=== PATIENT | female | born 1995 | race Caucasian/White ===

== ENCOUNTER 2021-07-09 10:13 | Observation (INO) ==
[2021-07-09] MEDS ORDERED: LACTATED RINGER'S 1,000 ML IV ONE (14:00)
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
== END 2021-07-09 19:48 | disposition home or self-care (01) ==
LOC: 4S1 10:13 → OPB 10:13 → 4S1 10:15

== ENCOUNTER 2021-07-10 11:20 | Inpatient (IN) ==
[2021-07-10] MEDS ORDERED: OXYTOCIN 30 UNITS/500 ML BAG IV PRN ×3 (12:20→19:25)
[2021-07-10 12:45] LABS: Hematocrit (blood only) 37.8 % (37-47); Mean Corpuscular Hemoglobin 26.1 pg (25-34); Mean Corpuscular Hgb Conc 31.7 g/dL (32-36); Mean Corpuscular Volume 82.4 fL (80-100); Mean Platelet Volume 11.7 fL (7.4-10.4); Platelet Count 174 K/uL (130-400); RDW Coefficient of Variation 20.6 % (11.5-14.5); RDW Standard Deviation 61.4 fL (36.4-46.3); Red Blood Count 4.59 M/uL (4.2-5.4); White Blood Count 11.46 K/uL (4.8-10.8)
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
--- NOTE | 2021-07-10 13:00 | Labor Progress Brief Note ---
Date of Service July 10, 2021 Assessment & Plan Admission and Anticipated Discharge Date Admission Date: July 10, 2021 Physical Exam Genitourinary: no vaginal lesions, no adnexal mass normal external appearance OB Exam Abdomen: + fundal height and + vertex Manual OB Exam: + cervical dilation 4 cm and 5 cm, + cervical effacement 50% and + station -2 OB Exam Monitor Tracing: + external FHT monitor used, + external uterine monitor used, + category I and + normal FHT variability Results & Data ([facility]) Vital Signs (Past 12 Hours) Vital Signs Temp Resp 07/10/21 12:19 37 C 18
[2021-07-10] MEDS ORDERED: ePHEDrine sulfate 50 MG/ML AMP ONE (13:09)
[2021-07-10] MEDS ORDERED: BUPIVACAINE 0.25% 30 ML VIAL ONE (13:09)
[2021-07-10] MEDS ORDERED: fentaNYL citrate 100 MCG/2 ML VIAL ONE (13:10)
[2021-07-10] MEDS ORDERED: fentaNYL 2MCG/ML ROPIVACAINE 1.25MG/ML 100 ML BAG EPI ONE (13:12)
[2021-07-10] MEDS: LACTATED RINGER'S 1,000 ML IV PRN ×2 (13:29→15:17)
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
[2021-07-10] MEDS ORDERED: fentaNYL 2MCG/ML ROPIVACAINE 1.25MG/ML 100 ML BAG EPI PRN (15:00)
[2021-07-10] MEDS ORDERED: ONDANSETRON INJ 2 MG/ML 2 ML VIAL IV PRN (15:00)
[2021-07-10] MEDS ORDERED: NALBUPHINE HCL INJ 10 MG/ML AMP IV PRN (15:00)
[2021-07-10] MEDS ORDERED: ePHEDrine sulfate 50 MG/ML AMP IV PRN (15:00)
[2021-07-10] MEDS ORDERED: NALOXONE HCL 0.4 MG/1 ML VIAL/CARP IV PRN (15:00)
[2021-07-10] MEDS ORDERED: NALOXONE HCL 1 MG in SODIUM CHLORIDE 0.9% 1000ML 1,000 ML IV PRN (15:00)
[2021-07-10] MEDS ORDERED: diphenhydrAMINE 50 MG/ML VIAL IV PRN (15:00)
[2021-07-10] MEDS: SODIUM CHLORIDE 0.9% INJ 10 ML VIAL ONE ×2 (15:31→15:38)
--- NOTE | 2021-07-10 17:11 | Labor Progress Brief Note ---
Date of Service July 10, 2021 Assessment & Plan Admission and Anticipated Discharge Date Admission Date: July 10, 2021 Physical Exam Genitourinary: Manual OB Exam: + cervical dilation 8 cm, + cervical effacement 100%, + station 0 and + amniotic fluid clear OB Exam Monitor Tracing: + external FHT monitor used, + external uterine monitor used, + category I and + normal FHT variability AROM with Amni-hook clear fluid Results & Data ([facility]) Vital Signs (Past 12 Hours) Vital Signs Temp Pulse Resp BP Pulse Ox 07/10/21 17:08 97 H 100 07/10/21 17:03 110 H 100 07/10/21 16:58 76 99 07/10/21 16:56 86 112/57 L 07/10/21 16:53 90 100 07/10/21 16:48 92 H 100 07/10/21 16:43 84 98 07/10/21 16:41 82 105/54 L 07/10/21 16:38 85 99 07/10/21 16:33 72 98 07/10/21 16:28 77 98 07/10/21 16:26 80 100/55 L 07/10/21 16:23 84 99 07/10/21 16:18 80 99 07/10/21 16:13 80 98 07/10/21 16:11 78 91/51 L 07/10/21 16:10 18 07/10/21 16:08 78 97 07/10/21 16:03 82 98 07/10/21 15:58 84 99 07/10/21 15:55 82 99/57 L 07/10/21 15:53 83 100 07/10/21 15:52 85 91/54 L 07/10/21 15:49 85 91/48 L 07/10/21 15:48 85 100 07/10/21 15:46 83 97/55 L 07/10/21 15:43 79 106/56 L 98 07/10/21 15:42 78 102/56 L 07/10/21 15:40 81 93/51 L 07/10/21 15:38 79 98 07/10/21 15:37 71 97/53 L 07/10/21 15:34 80 119/65 07/10/21 15:33 75 97 07/10/21 15:31 72 108/58 L 07/10/21 15:28 78 114/62 98 07/10/21 15:25 75 116/65 07/10/21 15:23 75 100 07/10/21 15:22 77 112/59 L 07/10/21 15:19 67 124/74 07/10/21 15:18 66 100 07/10/21 15:13 72 100 07/10/21 15:09 65 119/64 07/10/21 15:08 70 98 07/10/21 14:56 18 07/10/21 13:40 18 07/10/21 12:19 37 C 18 07/10/21 11:40 18
[2021-07-10] MEDS ORDERED: BENZOCAINE 20% AER SPR 82.5 GM CAN EXT PRN (19:25)
[2021-07-10] MEDS ORDERED: HYDROCORTISONE ACETATE 25 MG SUPP PR PRN (19:25)
[2021-07-10] MEDS ORDERED: DIPHTHERIA/TETANUS/PERTUSSIS 0.5 ML SYR/VIAL IM ONE (19:25)
[2021-07-10] MEDS ORDERED: bisacodyL 10 MG SUPP PR PRN (19:25)
[2021-07-10] MEDS ORDERED: SUPERCREAM 0.870% 15 GM JAR EXT PRN (19:25)
--- NOTE | 2021-07-10 19:29 | Delivery Summary ---
Vaginal Delivery Summary Date of Service July 10, 2021 Vaginal Delivery Summary Delivery Note live male MARK over intact perineum with delayed cord clamping and Apgars 8/9 weight pending. Cord blood obtained followed by spontaneous delivery of intact placenta. No tears. EBL 200 ml. Final sponge and instrument count are correct. Mom and baby stable.
[2021-07-10] MEDS ORDERED: NON-FORMULARY MEDICATION (Ferrous Sulfate [Iron] 325 mg (65 mg iron) Tablet) PO SCH (21:00)
--- NOTE | 2021-07-10 21:39 | Anesthesia Procedure Note ---
Date of Service July 10, 2021 Anesthesia Post Epidural Note Vital Signs Vital Signs: Temp Pulse Resp BP Pulse Ox 36.7 C 82 18 100/58 L 98 07/10/21 19:00 07/10/21 21:36 07/10/21 19:00 07/10/21 21:36 07/10/21 19:18 Pain Intensity Abdomen: Pain Intensity: 0 Notes Mental Status: alert / awake / arousable and participated in evaluation Nausea / Vomiting: adequately controlled Pain: adequately controlled Airway Patency, RR, SpO2: stable & adequate BP & HR: stable & adequate Hydration State: stable & adequate Neuraxial Anesthesia: was administered and sensory block is resolving Anesthetic Complications: no major complications apparent and Pt Satisfied with anesthetic care Epidural: Removed without complications and With tip intact Notes: Epidural site clean, dry and intact. No signs of edema, erythema or bruising at insertion site. Pt instructed to request anesthesia if she has residual lower extremity numbness or if she develops lower extremity pain or weakness, back pain or headache.
[2021-07-10] MEDS: IBUPROFEN 600 MG TAB PO PRN (21:51)
[2021-07-10] MEDS: DOCUSATE SODIUM 100 MG CAP PO SCH (21:51)
[2021-07-11] MEDS: IBUPROFEN 600 MG TAB PO PRN ×5 (03:32→20:48)
[2021-07-11 07:47] LABS: Hematocrit (blood only) 31.2 % (37-47); Hemoglobin 9.8 g/dL (12.0-16.0); Mean Corpuscular Hemoglobin 25.8 pg (25-34); Mean Corpuscular Hgb Conc 31.4 g/dL (32-36); Mean Corpuscular Volume 82.1 fL (80-100); Mean Platelet Volume 12.1 fL (7.4-10.4); Platelet Count 162 K/uL (130-400); RDW Coefficient of Variation 20.4 % (11.5-14.5); RDW Standard Deviation 60.7 fL (36.4-46.3); White Blood Count 9.95 K/uL (4.8-10.8)
[2021-07-11] MEDS: PRENATAL VITAMIN 1 TAB PO SCH (07:50)
[2021-07-11] MEDS: DOCUSATE SODIUM 100 MG CAP PO SCH ×2 (07:50→20:43)
[2021-07-11] MEDS ORDERED: FERROUS SULFATE 325 MG TAB PO SCH (08:00)
[2021-07-11] MEDS ORDERED: NON-FORMULARY MEDICATION (Prenat.Vits,Cal,Min-Iron-Folic Tablet) PO SCH (09:00)
[2021-07-11] MEDS ORDERED: METHYLERGONOVINE MALEATE 0.2 MG TAB PO STA (09:36)
--- NOTE | 2021-07-11 09:39 | Obstetrical Progress Note ---
Date of Service July 11, 2021 Assessment & Plan Admission and Anticipated Discharge Date Admission Date: July 10, 2021 Subjective Patient is seen and examined. She feels well, no complaints. Ambulating without dizziness Voiding without difficulty Tolerating regular diet with out N&V Bleeding: she passed a small cloth 10 minutes ago. Otherwise not heavy No fever/ chills/ CP/ SOB/ N&V/ Leg pain Breast feeding without problems Vital Signs Temp Pulse Resp BP Pulse Ox 07/11/21 03:30 36.6 C 66 16 119/75 96 07/10/21 22:30 36.7 C 77 18 111/68 97 Lab Results 07/10/21 07/10/21 07/11/21 Range/Units 12:31 12:50 06:57 WBC 11.46 H 9.95 (4.8-10.8) K/uL RBC 4.59 3.80 L (4.2-5.4) M/uL Hgb 12.0 9.8 L (12.0-16.0) g/dL Hct 37.8 31.2 L (37-47) % MCV 82.4 82.1 (80-100) fL MCH 26.1 25.8 (25-34) pg MCHC 31.7 L 31.4 L (32-36) g/dL RDW Std Deviation 61.4 H 60.7 H (36.4-46.3) fL RDW Coeff of Bernardino 20.6 H 20.4 H (11.5-14.5) % Plt Count 174 162 (130-400) K/uL MPV 11.7 H 12.1 H (7.4-10.4) fL SARS-CoV-2, RNA, NAAT NEGATIVE (NEGATIVE) PE: General: Alert, orientedx3, NAD Abd: soft, NT, fundus firm, below Umbilicus Perineum intact, Lochia rubra minimal Ext; NT, no edema AP: 25 yo s/p , ppd# 1 VSS Afebrile doing well Continue routine care Start po methergine All questions were answered D/C home tomorrow Results & Data ([facility]) Vital Signs (Past 12 Hours) Vital Signs Temp Pulse Resp BP Pulse Ox 07/11/21 03:30 36.6 C 66 16 119/75 96 12/31/21 22:30 36.7 C 77 18 111/68 97
[2021-07-11] MEDS: ACETAMINOPHEN 325 MG TAB PO PRN ×2 (10:25→19:37)
[2021-07-11] MEDS: METHYLERGONOVINE MALEATE 0.2 MG TAB PO SCH ×3 (12:49→20:44)
[2021-07-11] MEDS ORDERED: bisacodyL 5 MG TABEC PO SCH (20:00)
[2021-07-11] MEDS: FERROUS SULFATE 325 MG TAB PO SCH (20:43)
[2021-07-12] MEDS: IBUPROFEN 600 MG TAB PO PRN ×2 (01:23→05:17)
[2021-07-12 06:24] LABS: Hematocrit (blood only) 31.6 % (37-47); Hemoglobin 10.2 g/dL (12.0-16.0)
[2021-07-12] MEDS: PRENATAL VITAMIN 1 TAB PO SCH (08:20)
[2021-07-12] MEDS: FERROUS SULFATE 325 MG TAB PO SCH (08:21)
[2021-07-12] MEDS: DOCUSATE SODIUM 100 MG CAP PO SCH (08:21)
--- NOTE | 2021-07-12 08:41 | Obstetrical Progress Note ---
Date of Service July 12, 2021 Assessment & Plan Admission and Anticipated Discharge Date Admission Date: July 10, 2021 Subjective Patient is seen and examined. She feels well, no complaints. Ambulating without dizziness Voiding without difficulty Tolerating regular diet with out N&V Bleeding is minimal No fever/ chills/ CP/ SOB/ N&V/ Leg pain Breast feeding without problems Vital Signs Temp Pulse Resp BP Pulse Ox 07/11/21 23:20 36.7 C 57 L 16 111/71 98 07/11/21 16:00 36.7 C 60 18 116/75 07/11/21 12:45 36.6 C 68 18 114/61 97 07/11/21 08:45 36.7 C 61 18 115/73 98 Lab Results 07/10/21 07/10/21 07/11/21 Range/Units 12:31 12:50 06:57 WBC 11.46 H 9.95 (4.8-10.8) K/uL RBC 4.59 3.80 L (4.2-5.4) M/uL Hgb 12.0 9.8 L (12.0-16.0) g/dL Hct 37.8 31.2 L (37-47) % MCV 82.4 82.1 (80-100) fL MCH 26.1 25.8 (25-34) pg MCHC 31.7 L 31.4 L (32-36) g/dL RDW Std Deviation 61.4 H 60.7 H (36.4-46.3) fL RDW Coeff of Bernardino 20.6 H 20.4 H (11.5-14.5) % Plt Count 174 162 (130-400) K/uL MPV 11.7 H 12.1 H (7.4-10.4) fL SARS-CoV-2, RNA, NAAT NEGATIVE (NEGATIVE) 07/12/21 Range/Units 06:02 WBC (4.8-10.8) K/uL RBC (4.2-5.4) M/uL Hgb 10.2 L (12.0-16.0) g/dL Hct 31.6 L (37-47) % MCV (80-100) fL MCH (25-34) pg MCHC (32-36) g/dL RDW Std Deviation (36.4-46.3) fL RDW Coeff of Bernardino (11.5-14.5) % Plt Count (130-400) K/uL MPV (7.4-10.4) fL SARS-CoV-2, RNA, NAAT (NEGATIVE) PE: General: Alert, orientedx3, NAD Abd: soft, NT, fundus firm, below Umbilicus Perineum intact, Lochia rubra minimal Ext; NT, no edema AP: 25 yo s/p , ppd# 2 VSS Afebrile doing well Continue routine care All questions were answered Discussed when to call D/C home , f/u in office Results & Data ([facility]) Vital Signs (Past 12 Hours) Vital Signs Temp Pulse Resp BP Pulse Ox 07/11/21 23:20 36.7 C 57 L 16 111/71 98
== END 2021-07-12 10:15 | disposition home or self-care (01) | DRG 807 ==
LOC: OPB 11:20 → 4S1 11:23 → 4S2 21:55

== ENCOUNTER 2023-07-29 05:29 | Inpatient (IN) ==
--- NOTE | 2023-07-27 13:12 | Anesthesiology Consultation ---
Date of Service July 27, 2023 Assessment & Plan (1) Encounter for pre-operative examination: Chart Review Chart Review: charge entry initiated -Infectious Disease screening: Per PAT nursing assessment on 07/27/23. Patient with chronic allergy symptoms x weeks- mild nasal congestion. No other symptoms- mildly improved from previous. No known infectious disease contacts in past 10 days. No recent travel outside the country. No additional testing needed from anesthesia standpoint in regards to Covid. Labor Epidural 07/10/21= Epidural at L3 with 1 attempt. Easy, atraumatic placement on first attempt. History Surgery Operation Date: 07/29/23 07:30 Proposed Procedures p Primary Section - Peggy Bhatt MD s with Bilateral Tubal Ligation - Peggy Bhatt MD Height/Weight Height: 5 ft 2 in Weight: 86.183 kg Allergies Allergy/AdvReac Type Severity Reaction Status Date / Time adalimumab [From Humira] Allergy Unknown Rash Verified 07/27/23 12:21 Sulfa (Sulfonamide Allergy Unknown "HUGE RASH" Verified 07/27/23 12:21 Antibiotics) sulfasalazine Allergy Unknown Rash Verified 07/27/23 12:21 Medications Home Medications Medication Instructions Recorded Confirmed Last Taken ferrous sulfate 325 mg (65 mg 325 mg PO BID 06/01/19 07/27/23 07/09/21 08:00 iron) tablet (iron) prenat.vits,meggan,[id number]-[id number] 1 tab PO QAM 07/09/21 07/27/23 07/09/21 08:00 aspirin 81 mg tablet,delayed 81 mg PO QAM 07/27/23 07/27/23 Unknown release metformin 500 mg tablet 500 mg PO BID 07/27/23 07/27/23 Unknown Past Medical History Medical History Breech presentation High blood pressure hx prior /baby aspirin recommended by maternal / medicine. High cholesterol Pre-diabetes Rheumatoid arthritis Past Family History Family History Other No pertinent family history in first degree relatives Past Surgical History Surgical History History of mitral valve repair 2007 or 2008. Social History Smoking Status: Never smoker Do You Dip or Chew Tobacco: No Hx Substance Use: No substance use type: does not use Testing Laboratory Results 05/31/23= WBC: 9.26 H/H: 11.2/37.7 PLATELETS: 192 Electrocardiogram Date: 09/21/22 Findings: + NSR @ (79 bpm) Incomplete right bundle branch block Echocardiogram Date: 06/01/22 EF: 59% LV Function: normal RWMA: + none Other Findings: no LVH or no diastolic dysfunction Evidence of prior mitral valve repair. Borderline anterior mitral valve prolapse. Mitral stenosis is absent. Mild MR. Stress Test Date: 11/24/22 Type: exercise (ECHO) Stress echo and EKG negative for inducible ischemia. MPHR 86% No arrhythmias were noted with stress Patient describes 8/10 intensity chest discomfort at peak heart rate that resolv ed on the post-rest recovery interval with no associated EKG or echocardiographic abnormalities LV wall thickness is normal. LVEF 55-59%. Evidence of prior mitral valve repair. Borderline anterior mitral leaflet prolapse. Mitral stenosis is absent. Trace MR. No evidence of pulmonary hypertension.
[2023-07-29] MEDS ORDERED: ceFAZolin 2000MG 2,000 MG/15 ML SYR IV SCH (06:00)
[2023-07-29] MEDS ORDERED: CITRIC ACID/SODIUM CITRATE 15 ML UDC PO SCH (06:00)
[2023-07-29 06:20] LABS: Basophils # (auto) 0.02 K/uL (0.00-0.20); Basophils % (auto) 0.3 %; Eosinophils # (auto) 0.05 K/uL (0.00-0.50); Eosinophils % (auto) 0.6 %; Hematocrit (blood only) 30.5 % (37.0-47.0); Hemoglobin 10.1 g/dl (12.0-16.0); Immature Granulocytes % (auto) 1.3 %; Lymphocytes % (auto) 19.2 %; Mean Corpuscular Hemoglobin 26.2 pg (25.0-34.0); Mean Corpuscular Hgb Conc 33.1 g/dL (32.0-36.0); Monocytes # (auto) 0.74 K/uL (0.11-0.59); Monocytes % (auto) 9.5 %; Neutrophils # (auto) 5.41 K/uL (1.40-6.50); Neutrophils % (auto) 69.1 %; Platelet Count 168 K/uL (130-400); RDW Coefficient of Variation 15.8 % (11.5-14.5); RDW Standard Deviation 44.9 fL (36.4-46.3); Red Blood Count 3.86 M/uL (4.20-5.40); White Blood Count 7.82 K/ul (4.8-10.8)
[2023-07-29] MEDS ORDERED: LACTATED RINGER'S 1,000 ML IV SCH ×2 (06:30→09:00)
--- NOTE | 2023-07-29 07:19 | History & Physical Bridge Note ---
Date of Service July 29, 2023 History & Physical Bridge Note I have examined the patient, reviewed the History & Physical and in the interval since the performance of the History & Physical I have noted the following changes of clinical significance: no changes noted Desires permanent sterilization. Declined reversible options, states she is %100 sure about this decision. Signed an informed consent.
[2023-07-29] MEDS ORDERED: MoRPHine SULFATE PF 1 MG/ML 10 ML AMP/VIAL ONE (07:29)
--- OUTSIDE RECORDS SUMMARY | 2023-07-29 07:29 | External Medical Summary | Summary of Care ---
Author Name Unknown Organization [facility] Address [address] [place] [address] Phone [phone] Care Team Providers Care Reservations Sales Agent Name Role Phone Marilu Quiros MD Primary Care Provider [phone] Reason for Visit * Reason Comments Return Visit Pre-Op Testing Encounter Details Date Type Department Care Team (Late st Contact Info) Description 07/25/2023 9:45 AM EST Office Visit Gynecology/Obstetric s [facility] [address] [place] [address] Humza Aleman MD [address] [place] [address] S/P mitral valve repair*; Antepartum anemia complicating ; Supervision of high-risk , unspecified trimester; Obesity in , antepartum; Maternal congenital cardiac anomaly, antepartum; Maternal rheumatoid arthritis complicating (HCC); History of macrosomia in infant in prior , currently ; History of gestational hypertension; Rubella non-immune status, antepartum; Depression complicating , antepartum; Low maternal serum vitamin B12 Allergies Active Allergy Reactions Criticality Noted Date Comments Adalimumab Rash Medium 09/21/2022 Sulfasalazine Rash Medium 07/24/2010 documented as of this encounter (statuses as of 07/25/2023) Medications Medication Sig Dispensed Refills Start Date End Date Status metFORMIN HCl 500 MG Oral Tablet (Glucophage) Take 1 Tablet by mouth 2 times a day with morning and evening meals. 180 Tablet 1 09/03/2022 Active Azelastine HCl 0.1 % Nasal Solution (Astelin) Administer 2 Sprays into nostril in the morning and 2 Sprays before bedtime. 90 mL 3 11/02/2022 Active Budesonide 32 MCG/ACT Nasal Suspension Administer 2 Sprays into each nostril in the morning. 15 mL 5 11/26/2022 Active 19 29-1 MG Oral Tablet Chewable Take by mouth. 0 Active Aspirin 81 MG Oral Tablet Chewable Take 1 Tablet by mouth in the morning. 0 Active Sertraline HCl 50 MG Oral Tablet (Zoloft)Indications :Depression complicating , antepartum Take 1 Tablet by mouth in the morning. 90 Tablet 2 03/30/2023 Active Additional Information Patient not taking.Reported on 07/25/2023 Ferrous Sulfate 325 (65 Fe) MG Oral Tablet (Feosol)Indications :Antepartum anemia complicating Take 1 Tablet by mouth in the morning and 1 Tablet before bedtime. 60 Tablet 3 05/03/2023 Active Breast Pump Dispense double electric breast pump. Dx Z39.1 1 Each 0 05/18/2023 Active Vitamin B-12 1000 MCG Oral Tablet (Cyanocobalamin)Ind ications:Antepartum anemia complicating Take 1 Tablet by mouth in the morning. 30 Tablet 2 06/07/2023 Active Azithromycin 250 MG Oral Tablet (Zithromax Z-Abiodun)Indications:A cute maxillary sinusitis, recurrence not specified Take two tablets by mouth on first day, then 1 tablet daily until gone 6 Tablet 0 07/05/2023 Active documented as of this encounter (statuses as of 07/25/2023) Active Problems Problem Noted Date Diagnosed Date Low maternal serum vitamin B12 05/03/2023 Depression complicating , antepartum Overview: Zoloft Rubella non-immune status, antepartum 12/29/2022 Supervision of high-risk , unspecified trimester 12/28/2022 Obesity in , antepartum 12/28/2022 Overview: Pre-gravid BMI 34.01 (#186, 5'2") Early 1 hour GCT elevated. 3 hour GTT normal. Typically takes Metformin 500 mg BID for prediabetes. Patient held Metformin for one week prior to gestational diabetes screening; plans to resume taking it now. Hemoglobin AIC Results: Lab Results Component Value Date/Time HEMOGLOBIN A1C - RADHA 5.6 05/12/2022 07:52 AM Last Assessment & Plan: Low risk NIPT appreciated as well as early 1'GTT and 3'GTT results. Maternal congenital cardiac anomaly, antepartum 12/28/2022 Overview: Mitral valve prolapse Last Assessment & Plan: Mitral valve regurgitation with repair. Maternal rheumatoid arthritis complicating pregn arabella 12/28/2022 Overview: Follows with [facility] Rheumatology. Stopped medication due to . Currently reports persistent joint pain. Per progress note from Dr. Davis on 12/23: "1. Continue off all DMARD treatment given 2. will start Orencia after delivery 3. contact with any issues 4. return to clinic in 6 months" Last Assessment & Plan: RHEUMATOID ARTHRITIS 1. Rheumatoid arthritis is the most common autoimmune disease in women of childbearing age. The prevalence is approximately 1 in 2000 pregnancies with a peak incidence at 35 to 40 years of age. 2. related changes in circulating hormones may contribute to a shift to a less inflammatory state during . Approximately 70-80% of women note an improvement in their RA during , and this usually is evident as early as the first trimester. However, approximately 90% of patients will experience a flare, usually within the first three months. 3. NSAID's for symptom management are associated with oligohydramnios and premature ductus arteriosus closure and should be avoided. 4. Glucocorticoid therapy is felt to be safe in if the benefits outweigh the risks of growth restriction at high doses, need for stress-dose steroids at delivery or for medical illness if chronic use antepartum, and increased risk for premature rupture of membranes and delivery. 5. Generally, the lowest possible dose of prednisone for disease control is recommended for patients whose RA becomes active during . 6. Methotrexate, leflunamide, minocycline, gold salts, and penicillinamine are contraindicated in . 7. Hydroxychloroquine is generally thought to be safe. There is a risk for rare ocular side-effects in the fetus. 8. RA itself does not appear to have any negative effects on . There is no documented association between increased loss, IUGR, or other complications and uncomplicted RA. Therefore, increased surveillance secondary to maternal RA is not necessary. History of macrosomia in inf ant in prior , currently 12/28/2022 Overview: 2nd baby: 4.281 kg Consider growth scan 36-37 weeks Last Assessment & Plan: CONSIDERATIONS: Explained that macrosomia is defined as a weight of greater than 4000 grams. A woman who previously has given to an infant weighing more than 4,000 g is 5-10 times more likely to deliver an infant weighing more than 4,500 g than a woman without such a history. Discussed that a variety of factors predispose a to macrosomia, including preexisting maternal diabetes, uncontrolled gestational diabetes, maternal prepregnancy obesity, excessive gestational weight gain, maternal interpregnancy weight gain, a prior macrosomic , postterm , and maternal nonsmoking status. An accurate diagnosis of macrosomia can be made only by weighing the after delivery. The diagnosis of macrosomia is imprecise. Methods used to predict weight include assessment of maternal risk factors, clinical examination, and ultrasound measurement of the fetus. For suspected macrosomia, the accuracy of estimated weight using ultrasound biometry is no better than that obtained with clinical palpation. RECOMMENDATION: Recommend performing gestational diabetes mellitus screen at time of first visit and repeat again at 26-28 weeks if early screen is normal. Monitor maternal weight gain throughout . Recommended weight gain during is 11-20 pounds for women with pre- BMI of 34. Consider referral for a nutrition consult. Consider growth scan at 36-37 weeks if LGA suspected. History of gestational hypertension 12/28/2022 Overview: History of elevated blood pressures towards the end of 2017 . Recommend bASA 81 mg daily beginning at 12-13 weeks due to multiple moderate preeclampsia risk factors (history of gestational hypertension, autoimmune disease). Last Assessment & Plan: CONSIDERATIONS: Explained to patient that in a woman who has always had normal blood pressures, gestational hypertension (GHTN) is defined as persistent elevations in her BP after 20 weeks gestation. Elevated BP is defined as greater than or equal to 140mmHg systolic or greater than 90mmHg diastolic on two separate occasions at least 4 hours apart after 20 weeks gestation. Explained to patient that women with hypertension during are at significantly increased risk for placental abruption, pre-eclampsia/eclampsia, delivery, gestational diabetes, growth restriction, stillbirth, delivery, hemorrhage, and maternal morbidity. These risks are related to the severity of the hypertension RECOMMENDATIONS: Recommend patient be followed clinically. Also recommend labwork with AST/ALT and platelets, and urine protein screen. If diagnosed with gestational hypertension recommend Maternal Medicine ultrasound for growth within 1 week of GHTN diagnosis and then every 4 weeks thereafter. Reviewed that GHTN, pre-eclampsia and HELLP are not preventable conditions. There is some evidence that daily ASA 81mg may decrease the risk for recurrence in patients with additional risk factors we recommend that proceed with starting this therapy at 13 weeks. 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 We reviewed the increased risk for congenital cardiac defect is higher when there is an affected first degree relative of the fetus (parent or sibling). echo may not detect small VSD (<2mm) but is effective in diagnosis of most cyanotic lesions and many other clinically relevant cardiac defects. Today's exam did not suggest any evidence of cardiac abnormality. Encounter for therapeutic drug monitoring 2002 S/P mitral valve repair 04/03/2003 Overview: Last saw cardiology in September 2022. EKG that visit showed sinus rhythm, incomplete RBBB, unchanged from prior. +dyslipidemia, not on medications due to planning . Stress echo was completed 11/2022 d/t concern of chest pain - per Dr Castillo's note, "Echocardiogram was performed for evaluation of chest discomfort. She did have reproduction of chest discomfort with exercising on the treadmill, with no EKG changes to suggest ischemia, and normal echocardiographic response with no stress-induced wall motion abnormalities, an appropriate increase in left ventricular systolic function, and the valve structure and function and look normal with a normally functioning mitral valve repair." Cardiology aware of ; follow-up planned for later this summer. Last Assessment & Plan: 1. Recommend continued close follow-up with Cardiology throughout this . 2. Patient aware to report worsening palpitations, chest pain, or SOB to Cardiology and OB. Estimated Date of Delivery Comme nts Yes 08/04/2023 Based on Ultraso und documented as of this encounter (statuses as of 07/25/2023) Resolved Problems Problem Noted Date Diagnosed Date Resolved Date Cerebral ventriculomegaly of fetus affecting care of mother 05/31/2023 06/17/2023 Last Assessment & Plan: Not appreciated in prior or current MFM scan. Unable to view radiology images to confirm finding. Class 1 obesity 01/04/2023 05/31/2023 Class 2 obesity without seri ous comorbidity with body mass index (BMI) of 35.0 to 35.9 in adult 03/17/2021 05/31/2023 Maternal rheumatoid arthriti s complicating 03/17/2021 05/06/2022 Overview: Diagnosed at age 15. Patient discontinued sulfasalizine (discontinued to allergy) and methotrexate in the past. She is currently prescribed Cimzia however not currently taking 03/17/21. Reports her last flare was a few months ago. Last Assessment & Plan: 1. Rheumatoid arthritis is the most common autoimmune disease in women of childbearing age. The prevalence is approximately 1 in 2000 pregnancies with a peak incidence at 35 to 40 years of age. 2. related changes in circulating hormones may contribute to a shift to a less inflammatory state during . Approximately 70-80% of women note an improvement in their RA during , and this usually is evident as early as the first trimester. However, approximately 90% of patients will experience a flare, usually within the first three months. 3. NSAID's for symptom management are associated with oligohydramnios and premature ductus arteriosus closure and should be avoided. 4. Glucocorticoid therapy is felt to be safe in if the benefits outweigh the risks of growth restriction at high doses, need for stress-dose steroids at delivery or for medical illness if chronic use antepartum, and increased risk for premature rupture of membranes and delivery. 5. Generally, the lowest possible dose of prednisone for disease control is recommended for patients whose RA becomes active during . 6. Methotrexate, leflunamide, minocycline, gold salts, and penicillinamine are contraindicated in . 7. Hydroxychloroquine is generally thought to be safe. There is a risk for rare ocular side-effects in the fetus. 8. RA itself does not appear to have any negative effects on . There is no documented association between increased loss, IUGR, or other complications and uncomplicted RA. Therefore, increased surveillance secondary to maternal RA is not necessary. 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 Last Assessment & Plan: ACOG is recommending vaccination of individuals because we have evidence of the safe and effective use of the vaccine during from many tens of thousands of reporting individuals, because we know that COVID-19 infection puts people at increased risk of severe complications. Vaccines are our single most effective tool against preventable viruses or diseases, including COVID-19. ACOG and [facility] encourage individuals to get vaccinated without delay. Need for rubella vaccination 12/02/2020 12/28/2022 Overview: Rubella negative at [facility] High-risk 11/28/2020 05/06/20 22 Iron deficiency anemia 04/26/201712/28 Other fatigue 04/21/2017 07/20/2017 Palpitations 04/21/2017 07/20/2017 Chest pain 04/21/2017 07/20/2017 SBE (subacute bacterial endo carditis) prophylaxis candidate 10/30/2009 03/18/2023 Anticoagulation management encounter 04/03/2003 04/05/2017 documented as of this encounter (statuses as of 07/25/2023) Immunizations Name Administration Dates Next Due DTaP Dipth/Tet/Acell Pertussis (Infanrix), Peds 11/12/1999,03/16/1996,04/28/1995,01/25,1994 HIB PRP-T, 4 dose (ActHib) 03/16/1996,,01/25/1995,11/12 HPV Vaccine, 4-Valent 12/01/2009,08/01/2009,04/10 Hepatitis B, 0-19 yrs 04/28/1995,1994,11/1994 IPV - Polio Virus Vaccine (Inact) 1999,03/16/1996,04/28/1995,01/25,1994 MMR - Measles/Mumps/Rubella Vaccine 11/12/1999,0 03/16/1996 Meningococcal Conjugate Vacc ine (Menactra/Menveo) 03/26/2008 PPD 10/19/2017 Seasonal Influenza Intranasal 04/21/2009 Seasonal Influenza, PF, 6 M & above, IM , (FluLaval or Fluzone) 03/30/2017 Seasonal Influenza, Quadriva lent,with Preserve, 3 yr & above, IM 02/14/2015 Seasonal Influenza, Split, I IV3, With Preserve, Inj 06/05/2014,04/03/2013,07/29/2011 TDAP (age 10 and older)(Boostrix) 05/18/2023, TDAP (age 11 and older)(Adacel) 09/03/2014,03/26 Varicella Vaccine (Chicken Pox) 08/01/2009,12/12 documented as of this encounter Social History Tobacco Use Types Packs/Day Years Used Date Smoking Tobacco: Never Passive Smoke Exposure: Never Smokeless Tobacco: Never Alcohol Use Standard Drinks/Week Comments Not Currently 0 (1 standard drink = 0.6 oz pur e alcohol) Denies in PHQ-2 Answer Date Recorded PHQ Adult Total Score 6 05/18/2023 Hunger Vital Sign Answer Date Recorded Within the past 12 months, y ou worried that your food would run out before you got the money to buy more. Never true 10/27/19 23 Within the past 12 months, t he food you bought just didn't last and you didn't have money to get more. Never true 10/26/2022 [place] Depression Scale Answer Date Recorded [place] Depression Scale Total 8 05/18/2023 The thought of harming myself has occurred to me . Never 05/18/2023 Estimated Date of Delivery Comme nts Yes 08/04/2023 Based on Ultraso und Sex and Gender Information Value Date Recorded Sex Assigned at Female 05/01/2022 11:26 AM EDT Gender Identity Female 05/01/2022 11:26 AM EDT Sexual Orientation Straight 05/01/2022 11 :26 AM EDT Job Start Date Occupation Industry Not on file Not on file Not on file documented as of this encounter Last Filed Vital Signs Vital Sign Reading Time Taken Comments Blood Pressure 116/68 07/25/2023 9:32 AM EST Pulse - - Temperature 36.5 C (97.7 F) 07/25/2023 9:32 AM ES T Respiratory Rate - - Oxygen Saturation - - Inhaled Oxygen Concentration - - Weight 86.2 kg (190 lb) 07/25/2023 9:32 AM EST Height 157.5 cm (5' 2") 07/25/2023 9:32 AM EST Body Mass Index 34.75 07/25/2023 9:32 AM EST documented in this encounter Progress Notes * Mckenna Adorno LPN - 07/25/2023 9:35 AM EST 38w4d Denies concerns. Csection and BTL 08/03/23. documented in this encounter H&P Notes * Humza Aleman MD - 07/25/2023 10:04 AM EST [address] [place] [address] Appt line [phone] Luisa Kaiser is a 27 year old year old year old at 38w4d Here for preop. Patient's is complicated by breech presentation. This morning in the office ultrasound isdone and breech presentation was again confirmed. Patient also wishes to have permanent sterilization. OB History Para Term AB Living 4 2 2 0 1 2 SAB IAB Ectopic Multiple Live Births 1 0 0 0 2 # Outcome Date GA Lbr Fahad/2nd Weight Sex Delivery Anes PTL Lv 4 Current 3 Term 07/10/21 39w6d 4.281 kg (9 lb 7 oz) M Induction of EPI N LACEY Comments: FOB #2: Macrosomia - no GDM 2 SAB 09/2020 AB, SP, 1 Comments: FOB #2: +HPT 1 Term 11/23/16 40w0d 3.374 kg (7 lb 7 oz) M Vag-Spont N LACEY Comments: FOB #1: b/p issues during labor and , not formally with GHTN/PEC Obstetric Comments 2022: FOB#2 Everardo Kaiser. 26 YO. Healthy. No children from outside of this relationship. Date Labor Sex Delivery Anesth Del Comments GA Length Weight Type Site [employer] History: Menstrual Index: / / days. Denies h/o STDs and abnormal Paps. Her past medical/surgical histories and current medications are recorded in the electronic record. Past Surgical History: Procedure Laterality Date DENTAL SURGERY PROCEDURE NEC RECONSTRUCT MITRAL VALVE W/RING 07/11/2002 26 mm Elisa ring and cleft suture Family History Problem Relation Age of Onset Hyperlipidemia Mother 43 identified within the last year; takes fish oil, not on medication, not consistently high Other (Other) Mother ovarian cyst Other (Other) Father joint disease - not sure type Drug abuse Grandmother (Maternal) was not using at the time of , but unsure Cervical Cancer Grandmother (Maternal) No Known Problems Son No Known Problems Son Lung cancer Grandfather (Maternal) metastatic Aortic dissection Uncle (Maternal) 45 thoracic; tested for genetic causes, was negative History Social History Socioeconomic History Marital status: Spouse name: Everardo Number of children: Not on file Years of education: Not on file Highest education level: Not on file Occupational History 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 She has 2 dogs and a cat at home. She is in the 11 th grade [employer]. Social Determinants of Health Financial Resource Strain: Not on file Food Insecurity: No Food Insecurity (10/26/2022) Hunger Vital Sign Worried About Running Out of Food in the Last Year: Never true Ran Out of Food in the Last Year: Never true Transportation Needs: Not on file Physical Activity: Not on file Stress: Not on file Social Connections: Not on file Intimate Partner Violence: Not on file Housing Stability: Not on file @[employer]@ Physical Exam: BP 116/68 | Temp 36.5 C (97.7 F) | Ht 1.575 m (5' 2") | Wt 86.2 kg (190 lb) | LMP 10/30/2022 (Approximate) | BMI 34.75 kg/m | BSA 1.94 m CV: S1, S2. Regular rate and Rhythm Lungs: Clear to auscultation bilaterally. Abdomen: Soft with a gravid uterus and no palpable contractions. Fundal Height: 38cms heart rate: 140 / Extremities: Soft non tender calves bilaterally. A/P: 27 year old year old Breech presentation. Patient is scheduled for section We have discussed the risk alternatives and complications of surgery including more surgery to correct complication,risk of anesthesia,infection,damage to internal organs and . We have also discussed the possibility that pt's present situation may not change. Pt is aware and wishes to proceed to surgery. Consent is signed Pt is on license of [facility]. For primary section and bilateral salpingectomy Humza Aleman MD 07/25/2023 10:04 AM documented in this encounter Plan of Treatment Upcoming Encounters Date Type Department Care Team (Late st Contact Info) Description 07/28/2023 8:20 AM EST Office Visit Rheumatology [address] [place], [place] [address] Ron Davis MD [address] [place] [address] [place] [address] 08/02/2023 10:00 AM EST Office Visit Gynecology/Obstetrics [facility] [address] [place] [address] Lynnette Santiago CRNP [address] [place] [address] 08/11/2023 12:00 PM EST Office Visit Gynecology/Obstetrics [facility] [address] [place] [address] Lynnette Santiago CRNP [address] [place] [address] Health Maintenance Due Date Last Done Comments COVID-19 Vaccine (#1) 03/14/1995 Influenza Vaccine (FLU shot) (#1) 2023 03/30/2017, 02/14/2015, 06/05/2014, Additional history exists Depression Screening 05/18/2024 05/18/2023 Pap Smear 08/21/2024 08/21/2021, 02/08, 04/05/2017, Additional history exists DTaP,Tdap,and Td Vaccines (10 - Td or Tdap) 05/18/2033 05/18/2023, 04/23/2021, 09/03/2014, Additional history exists Hepatitis B Completed 04/28/1995, 01/1995, 1994 MENINGOCOCCAL (MENACTRA/MENVEO) Aged Out 03/26/2008 No longer eligible based on patient's age to complete this topic GARDASIL-HPV IMMUNIZATION SERIES Completed 12/01/2009, 08/01/2009, 04/21/2009 Pneumococcal Vaccine: Pediatrics (0 to 5 Years) and At-Risk Patients (6 to 64 Years) Aged Out No longer eligible based on patient's age to complete this topic documented as of this encounter Medical Devices Not on filedocumented as of this encounter Visit Diagnoses Diagnosis S/P mitral valve repair- Primary Other postprocedural status Antepartum anemia complicating Anemia, antepartum Supervision of high-risk , unspecified trimester Obesity in , antepartum Obesity complicating , childbirth, or the puerperium, antepartum condition or complication Maternal congenital cardiac anomaly, antepartum Maternal rheumatoid arthritis complicating (HCC) Bone and joint disorders of maternal back, pelvis, and lower limbs, complicating , childbirth, or the puerperium, unspecified as to episode of care History of macrosomia in infant in prior , currently with other poor obstetric history History of gestational hypertension Rubella non-immune status, antepartum Other specified complication, antepartum Depression complicating , antepartum Mental disorders of mother, antepartum Low maternal serum vitamin B12 documented in this encounter Care Teams Reservations Sales Agent Relationship Specialty Start Date End Date Marilu Quiros MD [address] [place] [address] PCP - General Internal Medicine 06/09/22 documented as of this encounter
--- OUTSIDE RECORDS SUMMARY | 2023-07-29 07:29 | External Medical Summary | Summary of Care ---
Author Name Unknown Organization [facility] Address [address] [place] [address] Phone [phone] Care Team Providers Care Control Room Tender Name Role Phone Marilu Quiros MD Primary Care Provider [phone] Encounter Details Date Type Department Care Team (Late st Contact Info) Description 07/25/2023 Result Scan Unspecified Department <No scans attached> Allergies Active Allergy Reactions Criticality Noted Date Comments Adalimumab Rash Medium 09/21/2022 Sulfasalazine Rash Medium 07/24/2010 documented as of this encounter (statuses as of 07/26/2023) Medications Medication Sig Dispensed Refills Start Date [...] as of this encounter (statuses as of 07/26/2023) Active Problems Problem Noted Date Diagnosed Date [...] Results Component Value Date/Time HEMOGLOBIN A1C - [facility] 5.6 05/12/2022 07:52 AM Last Assessment & Plan: Low risk NIPT appreciated as well as early 1'GTT and 3'GTT results. Maternal congenital cardiac anomaly, antepartum 12/28/2022 Overview: Mitral valve prolapse Last Assessment & Plan: Mitral valve regurgitation with repair. Maternal rheumatoid arthritis complicating pregn arabella 12/28/2022 Overview: Follows with [facility] Rheumatology. Stopped medication due to . Currently [...] 5-10 times more likely to deliver an weighing more than 4,500 g than a woman without such a history. Discussed that a variety of factors predispose a to macrosomia, including preexisting maternal diabetes, uncontrolled gestational diabetes, maternal prepregnancy obesity, excessive gestational weight gain, maternal interpregnancy weight gain, a prior macrosomic infant, postterm , and maternal nonsmoking status. 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 Last Assessment & Plan: ACOG is recommending vaccination of individuals because we have evidence of the safe and effective use of the vaccine during from many tens of thousands of reporting individuals, because we know that COVID-19 infection puts people at increased risk of severe complications. Vaccines are our single most effective tool against preventable viruses or diseases, including COVID-19. ACOG and [facility] encourage individuals to get vaccinated without delay. Need for rubella vaccination 12/02/2020 12/28/2022 Overview: Rubella negative at [facility] High-risk 11/28/2020 05/06/20 Iron deficiency anemia 04/26/201712/28 Other fatigue 04/21/2017 07/20/2017 Palpitations 04/21/2017 07/20/2017 Chest pain 04/21/2017 07/20/2017 SBE (subacute bacterial endo carditis) prophylaxis candidate 10/30/2009 03/18/2023 Anticoagulation management encounter 04/03/2003 04/05/2017 documented as of this encounter (statuses as of 07/26/2023) Immunizations Name Administration Dates Next Due DTaP Dipth/Tet/Acell Pertussis (Infanrix), Peds 11/12/1999,03/16/1996,04/28/1995,01/25,1994 HIB PRP-T, 4 dose (ActHib) 03/16/1996,,01/25/1995,11/12 HPV Vaccine, 4-Valent 12/01/2009,08/01/2009,04/10 Hepatitis B, 0-19 yrs 04/28/1995,1994,03/0 11/1994 IPV - Polio Virus Vaccine (Inact) 1999,03/16/1996,04/28/1995,01/25,1994 [...] money to get more. Never true 10/26/2022 [place] Depression Scale Answer Date Recorded [place] Depression Scale Total 8 05/18/2023 The thought [...] on file documented as of this encounter Plan of Treatment Upcoming Encounters Date Type Department Care Team (Wendy st Contact Info) Description 08/02/2023 10:00 AM EST [facility] [address] [place] [address] Lynnette Santiago CRNP [address] [place] [address] 08/11/2023 12:00 PM EST Office Visit Gynecology/Obstetrics [facility] [address] [place] [address] Lynnette Santiago CRNP [address] [place] [address] 12/14/2023 3:20 PM EDT Office Visit Rheumatology [place] [address] [place], [place] [address] Ron Davis MD [address] [place], [place] [address] Health Maintenance Due Date Last Done Comments [...] Not on filedocumented as of this encounter Procedures Procedure Name Priority Date/Time Associated Diagnosis Comments OUTSIDE LAB RESULTS 07/25/2023 documented in this encounter Results * OUTSIDE LAB RESULTS (07/25/2023) 07/25/2023 No Physician Data Unknown LABORATORY documented in this encounter Care Teams Control Room Tender Relationship Specialty Start Date End Date Marilu Quiros MD [address] [place] [address] PCP - General Internal Medicine 06/09/22 documented as of this encounter
--- OUTSIDE RECORDS SUMMARY | 2023-07-29 07:29 | External Medical Summary | Summary of Care ---
Author Name Unknown Organization [facility] Address [address] [place] [address] Phone [phone] Care Team Providers Care Door Repairer Bus Name Role Phone Marilu Quiros MD Primary Care Provider [phone] Reason for Visit * Reason Onset Date Comments Information 07/22/2023 Encounter Details Date Type Department Care Team (Late st Contact Info) Description 07/22/2023 Telephone Gynecology/Ob[facility] [address] [facility] [place] [address] Lynnette Santiago CRNP [address] [facility] [address] Information Allergies Active Allergy Reactions Criticality Noted Date Comments Adalimumab Rash Medium 09/21/2022 Sulfasalazine Rash Medium 07/24/2010 documented as of this encounter (statuses as of 07/28/2023) Medications Medication Sig Dispensed Refills Start Date [...] as of this encounter (statuses as of 07/28/2023) Active Problems Problem Noted Date Diagnosed Date [...] Results Component Value Date/Time HEMOGLOBIN A1C - [facility] 5.6 05/12/2022 07:52 AM Last Assessment & Plan: Low risk NIPT appreciated as well as early 1'GTT and 3'GTT results. Maternal congenital cardiac anomaly, antepartum 12/28/2022 Overview: Mitral valve prolapse Last Assessment & Plan: Mitral valve regurgitation with repair. Maternal rheumatoid arthritis complicating pregn arabella 12/28/2022 Overview: Follows with [facility] Rheumatology. Stopped medication due to . Currently [...] woman who previously has given to an weighing more than 4,000 g is 5-10 [...] as of this encounter (statuses as of 07/28/2023) Resolved Problems Problem Noted Date Diagnosed Date [...] to discuss/inquire about COVID vaccine with her director stars. Last Assessment & Plan: ACOG is recommending vaccination of individuals because we have evidence of the safe and effective use of the vaccine during from many tens of thousands of reporting individuals, because we know that COVID-19 infection puts people at increased risk of severe complications. Vaccines are our single most effective tool against preventable viruses or diseases, including COVID-19. ACOG and [facility] encourage individuals to get vaccinated without delay. Need for rubella vaccination 12/02/2020 12/28/2022 Overview: Rubella negative at [facility] High-risk 11/28/2020 05/06/20 Iron deficiency anemia 04/26/201712/28 Other fatigue 04/21/2017 07/20/2017 Palpitations 04/21/2017 07/20/2017 Chest pain 04/21/2017 07/20/2017 SBE (subacute bacterial endo carditis) prophylaxis candidate 10/30/2009 03/18/2023 Anticoagulation management encounter 04/03/2003 04/05/2017 documented as of this encounter (statuses as of 07/28/2023) Immunizations Name Administration Dates Next Due DTaP Dipth/Tet/Acell Pertussis (Infanrix), Peds 11/12/1999,03/16/1996,04/28/1995,01/25,1994 HIB PRP-T, 4 dose (ActHib) 03/16/1996,,01/25/1995,11/12 HPV Vaccine, 4-Valent 12/01/2009,08/01/2009,04/10 Hepatitis B, 0-19 yrs 04/28/1995,1994,0311/1994 IPV - Polio Virus Vaccine (Inact) 1999,03/16/1996,04/28/1995,01/25,1994 [...] money to get more. Never true 10/26/2022 [place] Depression Scale Answer Date Recorded Golden Depression Scale Total 8 05/18/2023 The thought [...] on file documented as of this encounter Miscellaneous Notes * Telephone Encounter - Jessica Reddy OSA - 07/22/2023 9:52 AM EST Cancelled NSTs only * Telephone Encounter - Alise Schultz LPN - 07/22/2023 9:37 AM EST Pt notified. Please cancel NSTs * Telephone Encounter - Lynnette Santiago CRNP - 07/22/2023 8:01 AM EST Per MFM, NSTs are not indicated in this pt. Please keep ERIK appts, but cancel NSTs. Make pt aware. documented in this encounter Plan of Treatment Upcoming Encounters Date Type Department Care Team (Late st Contact Info) Description 08/02/2023 10:00 AM EST [facility] [address] [place] [address] Lynnette Santiago CRNP [address] [place] [address] 08/11/2023 12:00 PM EST Office [facility] [address] [place] [address] Lynnette Santiago CRNP [address] [place] [address] 12/14/2023 3:20 PM EDT Office Visit Rheumatology [place] [address] [facility] [place] [address] Ron Davis MD [address] [place] [address] Health Maintenance Due Date Last Done Comments [...] Not on filedocumented as of this encounter Care Teams Door Repairer Bus Relationship Specialty Start Date End Date Marilu Quiros [facility] [address] [facility] [address] PCP - General Internal Medicine 06/09/22 documented as of this encounter
--- OUTSIDE RECORDS SUMMARY | 2023-07-29 07:29 | External Medical Summary | Summary of Care ---
Author Name Unknown Organization [facility] Address [address] [place] [address] Phone [phone] Care Team Providers Care Stationary Engineer Supervisor Name Role Phone Marilu Quiros MD Primary Care Provider [phone] Encounter Details Date Type Department Care Team (Late st Contact Info) Description 07/25/2023 Telephone Gynecology/Obstetrics [facility] [address] [place] [address] Peggy Milan MD [address] [place] [address] Allergies Active Allergy Reactions Criticality Noted Date [...] Results Component Value Date/Time HEMOGLOBIN A1C - [facility] 5.6 05/12/2022 07:52 AM Last Assessment & Plan: Low risk NIPT appreciated as well as early 1'GTT and 3'GTT results. Maternal congenital cardiac anomaly, antepartum 12/28/2022 Overview: Mitral valve prolapse Last Assessment & Plan: Mitral valve regurgitation with repair. Maternal rheumatoid arthritis complicating pregn arabella 12/28/2022 Overview: Follows with [facility] Rheumatology. Stopped medication due to . Currently [...] to discuss/inquire about COVID vaccine with her chief recordist. Last Assessment & Plan: ACOG is recommending vaccination of individuals because we have evidence of the safe and effective use of the vaccine during from many tens of thousands of reporting individuals, because we know that COVID-19 infection puts people at increased risk of severe complications. Vaccines are our single most effective tool against preventable viruses or diseases, including COVID-19. ACOG and [facility] encourage individuals to get vaccinated without delay. [...] money to get more. Never true 10/26/2022 [place] Depression Scale Answer Date Recorded [place] Depression Scale Total 8 05/18/2023 The thought [...] encounter Miscellaneous Notes * Telephone Encounter - Angela Yepez RN - 07/25/2023 3:38 PM EST Spoke to Dr. Estrada curtains and draperies salesperson provider regarding patient. She would like patient to go directly to L and D for r/o ROM and evaluation since baby is breech. Patient called back and made aware. Advised that she drive directly to [facility]. Patient verbalized understanding. She is in community health [employer] andaware to go right to L and D not to go home first. Her will drive her there now. L and D made aware. * Telephone Encounter - Angela Yepez RN - 07/25/2023 3:26 PM EST Patient calling in Patient is calling [id number] c/o questioning ROM. Are you certain your membranes are ruptured? Unknown, Went to restroom and when she stood up she then felt a gush of fluid. No bleeding. Time 3:20 Amount: Is the fluid clear? yes Are you having any contractions? No Baby breech +FM No contractions / pain currently documented in this encounter Plan of Treatment Upcoming Encounters Date Type Department Care Team (Late st Contact Info) Description 07/28/2023 8:20 AM EST Office Visit Rheumatology [facility] [address] [place] [address] Ron Davis MD [address] [place] [address] 08/02/2023 10:00 AM EST Office Visit [facility] [address] [place] [address] Lynnette Santiago CRNP [address] [place] [address] 08/11/2023 12:00 PM EST [facility] [address] [place] [address] Lynnette Santiago CRNP [address] [place] [address] Health Maintenance Due Date Last Done Comments [...] filedocumented as of this encounter Care Teams Stationary Engineer Supervisor Relationship Specialty Start Date End Date Marilu Quiros MD [address] [place] [address] PCP - General Internal Medicine 06/09/22 documented as of this encounter
--- OUTSIDE RECORDS SUMMARY | 2023-07-29 07:30 | External Medical Summary ---
Author Name Unknown Address Unknown Organization [id number]:LABORATORY [facility] – [place] - [facility] [address] [place] [address] Laboratory Report Ordering Provider Test Date Status RAMON FRANK 07/25/2023 10:16:40 Final Observation Date Value Abnormality Reference (Units ) Status Creatinine 07/25/2023 10:16:40 0.7 0.5-1.0 (mg/dL) Final Glomerular filtration rate/1.73 sq M.predicted [Volume Rate/Area] in Serum, Plasma or Blood by Creatinine-based formula (CKD-EPI) 07/25/2023 10:16:40 >90 >=60 (mL/min) Final eGFR is calculated based on the CKD-EPI 2020 equation Performing Location LABORATORY [facility] – [place] - [address] [place] [address]
--- OUTSIDE RECORDS SUMMARY | 2023-07-29 07:30 | External Medical Summary ---
Author Name Unknown Address Unknown Organization [id number]:[facility] [facility] [place] [address] [place] [address] Laboratory Report Ordering Provider Test Date Status ZACRAMON 07/25/2023 10:16:40 Final Observation Date Value Abnormality Reference (Units ) Status Iron 07/25/2023 10:16:40 30 Below low normal 33-151 (ug/dL) Final Iron-binding capacity 07/25/2023 10:16:40 546 Above high normal 250-425 (ug/dL) Final Transferrin Sat % 07/25/2023 10:16:40 5 Below low normal 15-55 (%) Final Performing Location [facility] [place] [address] [place] [address]
--- OUTSIDE RECORDS SUMMARY | 2023-07-29 07:30 | External Medical Summary ---
Author Name Unknown Address Unknown Organization K01:LABORATORY C - [address] [facility] [address] [place] [address] Laboratory Report Ordering Provider Test Date Status RAMON FRANK 07/25/2023 10:16:40 Final Observation Date Value Abnormality Reference (Units ) Status Ferritin 07/25/2023 10:16:40 10 Below low normal 13- 150 (ng/mL) Final Performing Location [facility]ORY [facility] [place] - [address] [place] [address]
[2023-07-29] MEDS ORDERED: NALOXONE HCL 0.4 MG/1 ML VIAL/CARP IV PRN (08:22)
[2023-07-29] MEDS ORDERED: NALBUPHINE HCL 5 MG in SYRINGE 0 ML IV PRN (08:22)
[2023-07-29] MEDS ORDERED: HYDROmorphone INJ 0.5 MG/0.5 ML SYR IV PRN (08:22)
[2023-07-29] MEDS ORDERED: METOCLOPRAMIDE HCL 10 MG in SODIUM CHLORIDE 0.9% 50 ML IV PRN (08:22)
[2023-07-29] MEDS ORDERED: NALOXONE HCL 0.08 MG in SYRINGE 1.8 ML IV PRN (08:22)
[2023-07-29] MEDS ORDERED: diphenhydrAMINE 50 MG/ML VIAL IV PRN (08:22)
[2023-07-29] MEDS ORDERED: NALOXONE HCL 1 MG in SODIUM CHLORIDE 0.9% 1,000 ML IV PRN (08:22)
[2023-07-29] MEDS ORDERED: MEPERIDINE HCL 25 MG/ML CARP/VIAL IV PRN (08:22)
[2023-07-29] MEDS ORDERED: MoRPHine SULFATE PF 1 MG/ML 10 ML AMP/VIAL INT SPINAL ONE (08:22)
[2023-07-29] MEDS ORDERED: ePHEDrine sulfate 50 MG/ML AMP IV PRN (08:22)
[2023-07-29] MEDS ORDERED: ONDANSETRON INJ 2 MG/ML 2 ML VIAL IV PRN (08:22)
[2023-07-29] MEDS ORDERED: LACTATED RINGER'S 500 ML IV PRN (08:22)
[2023-07-29] MEDS ORDERED: PROMETHAZINE HCL 12.5 MG in SODIUM CHLORIDE 0.9% 50 ML IV PRN (08:22)
[2023-07-29] MEDS ORDERED: MoRPHine SULFATE 2 MG/ML CARP IV PRN (08:22)
[2023-07-29] MEDS ORDERED: NO NARCOTICS OR SEDATIVES SCH (08:30)
[2023-07-29] MEDS ORDERED: DC INTRASPINAL MORPHINE SCH (08:30)
[2023-07-29] MEDS ORDERED: SODIUM CHLORIDE 0.9% 1,000 ML IV SCH (08:30)
[2023-07-29] MEDS ORDERED: fentaNYL citrate PF 100 MCG/2 ML VIAL ONE (08:32)
[2023-07-29] MEDS ORDERED: ePHEDrine sulfate 50 MG/5 ML SYR ONE (08:46)
[2023-07-29] MEDS ORDERED: OXYTOCIN 10 UNITS/ML VIAL ONE (08:46)
[2023-07-29] MEDS ORDERED: BENZOCAINE 20% SPRY 85 APPLN/85 GM CAN EXT PRN (08:53)
[2023-07-29] MEDS ORDERED: DIPHTHER/TETAN/PERTUS Vaccine (Tdap, Adol/Adult) 0.5mL IM ONE (08:53)
[2023-07-29] MEDS ORDERED: MEASLES, MUMPS & RUBELLA VIRUS VACCINE (MMR) VIAL SQ ONE (08:53)
[2023-07-29] MEDS ORDERED: MAGNESIUM HYDROXIDE SUSP 30 ML UDC PO PRN (08:53)
[2023-07-29] MEDS ORDERED: SENNA 8.6 MG TAB PO PRN (08:53)
--- NOTE | 2023-07-29 09:02 | Operative Report ---
Post Operative Report Pre & Post Diagnosis Operation Date: 07/29/23 07:30 Pre-Op Diagnosis: Breech presentation at term Post-Op Diagnosis: Same; Delivery of a live male child at 0808 I identified the patient and participated in the time-out.: Yes Procedure Operation Date: 07/29/23 07:30 Actual Procedures p Primary Section - Peggy Bhatt MD s with Bilateral Tubal Ligation - Peggy Bhatt MD Surgeon Peggy Bhatt MD Analyzer Sales Dr KIRBY Estimated Blood Loss 600 Findings Consistent with Post-Op Diagnosis Baby was a viable male infant delivered at 08:08 AM incomplete breech presentation, Apgars 9/9, weight is 3405 gr. Maternal findings; normal uterus open tubes and ovaries. Specimens Placenta Drains Minor catheter drained 300 mL of clear urine Anesthesia Type Spinal Complications none Indications Patient is a 27-year-old G5, P2012 at 39 weeks and 1 day gestation with breech presentation at term, confirmed by ultrasound this morning. She desired primary and permanent sterilization. We discussed nonsurgical reversible contraception options and the risks and benefits of tubal ligation and possible regret in the future. She stated she is 100% sure to have permanent sterilization and signed informed consent. Description of Procedure Patient was taken to operating room where a spinal anesthesia was given without difficulty. She was placed in dorsal supine position with a leftward tilt. She was prepared and draped in usual sterile fashion. A financial skin incision was made and carried through to the underlying layer of fascia with the Bovie. Fascia was incised in the midline and incision was extended laterally with the help of Cook scissors. Then the upper aspect of the fascial incision was grasped with 2 Anthony clamps elevated the underlying rectus muscles were dissected off sharply with Cook scissors. Same thing was done on the lower incision. Then the muscles were in the midline, peritoneum was identified grasped with 2 pickups and entered sharply with Metzenbaum scissors. Peritoneal incision was extended superior and inferiorly with good visualization of the bladder. The bladder blade was inserted. Vesicouterine peritoneum was identified, grasped with pickups and entered sharply with Metzenbaum scissors, bladder flap was created digitally and bladder blade was reinserted. Uterus was incised in transverse fashion, incision was extended laterally with our appendage scissors, membranes were ruptured and clear fluid was obtained. Baby's buttocks were delivered down difficulty, followed by legs and arms in flexion position and then head without faculty. Mouth and nose were suctioned there was dried on the field he was vigorously crying and moving. The cord was clamped times and cut at 1 minute delay and then the was handed off to the pediatric team. Then the placenta was delivered manually as intact and complete. Uterus was externalized and cleared of all clots and debris's. Uterine incision was repaired with 0 Vicryl in a running locked fashion, second umbricating layer was placed with the same suture in running locked fashion. Excellent hemostasis achieved. Cul-de-sac and the pelvis was irrigated with warm normal saline and suctioned. Incision was checked of anesthetic again. Fallopian tubes were identified grasped with pickups and coagulated about 3 to 4 cm length and then cut with hand-held ligature bilaterally. They were hemostatic. Uterus was returned to the abdomen, parietal peritoneum was reapproximated with 3-0 Vicryl in a running fashion and the muscles were reapproximated in the same suture in a running fashion. All of the fascia and rectus muscles were hemostatic. Rectus fascia was reapproximated with 3-0 Vicryl starting from both columns meeting in the midline. Subcuticular fat tissue was brought together with 2-0 Vicryl in a running fashion, skin was closed with 4-0 Monocryl in a subcuticular cuticular fashion. The mom and baby tolerated procedure well. Sponge needle instrument count was correct x3. No complications happened, I was present during whole procedure. My server assistant was needed for retraction, hemostasis and aid during delivery of I attest to the content of the Intraoperative Record and any orders documented therein. Any exceptions are noted below.
[2023-07-29] MEDS: KETOROLAC 30 MG/ML VIAL IV PRN ×2 (09:18→17:32)
--- NOTE | 2023-07-29 09:58 | Anesthesiology Progress Note ---
Date of Service July 29, 2023 Anesthesia Post Procedure Vital Signs Vital Signs: Temp Pulse Resp BP Pulse Ox 07/29/23 09:53 72 145/75 H 98 07/29/23 09:49 68 93 07/29/23 09:48 68 98 07/29/23 09:43 68 110/57 L 99 07/29/23 09:40 16 07/29/23 09:40 64 94 07/29/23 09:38 65 96 07/29/23 09:33 96 07/29/23 09:33 65 07/29/23 09:33 62 109/57 L 07/29/23 09:30 16 07/29/23 09:29 63 94 07/29/23 09:28 65 97 07/29/23 09:23 100 07/29/23 09:23 63 07/29/23 09:23 62 128/71 07/29/23 09:20 16 07/29/23 09:18 63 100 07/29/23 09:13 64 127/65 100 07/29/23 09:10 16 07/29/23 09:08 65 100 07/29/23 09:03 100 07/29/23 09:03 62 07/29/23 09:03 62 128/64 07/29/23 09:00 36.6 C 16 07/29/23 05:46 36.6 C 18 07/29/23 05:38 79 119/64 Pain Intensity Abdomen: Pain Intensity: 5 Transfer of Care Handoff Completed per policy Notes Mental Status: alert / awake / arousable and participated in evaluation Nausea / Vomiting: adequately controlled Pain: adequately controlled Airway Patency, RR, SpO2: stable & adequate BP & HR: stable & adequate Hydration State: stable & adequate Neuraxial Anesthesia: was administered and sensory block is resolving Anesthetic Complications: no major complications apparent and Pt Satisfied with anesthetic care
[2023-07-29] MEDS: ACETAMINOPHEN 1,000 MG/100 ML VIAL IV PRN ×2 (11:22→21:07)
[2023-07-29] MEDS: OXYTOCIN 20 UNITS/LR 1,002 ML IV SCH ×2 (11:49→20:33)
[2023-07-29] MEDS: SIMETHICONE 80 MG CHEW PO SCH ×3 (13:40→20:51)
[2023-07-29] MEDS: DOCUSATE SODIUM 100 MG CAP PO SCH (20:52)
--- NOTE | 2023-07-30 00:17 | Obstetrical Progress Note ---
Date of Service July 30, 2023 Assessment & Plan Admission and Anticipated Discharge Date Admission Date: July 29, 2023 Subjective Postop check Patient is seen and examined Feels well, no complaints Pain is under control with meds No CP/ SOB/ Dizziness/ N&V/ VB/ Leg pain Not OOB yet Tolerating clears with nausea, has not eaten dinner or regular diet yet. Breast and bottle feeding Lab Results 07/29/23 Range/Units 05:57 WBC 7.82 (4.8-10.8) K/ul RBC 3.86 L (4.20-5.40) M/uL Hgb 10.1 L (12.0-16.0) g/dl Hct 30.5 L (37.0-47.0) % MCV 79.0 L (80.0-100.0) fL MCH 26.2 (25.0-34.0) pg MCHC 33.1 (32.0-36.0) g/dL RDW Std Deviation 44.9 (36.4-46.3) fL RDW Coeff of [place] 15.8 H (11.5-14.5) % Plt Count 168 (130-400) K/uL MPV 12.0 (9.4-12.4) fL Immature Gran % (Auto) 1.3 % Neut % (Auto) 69.1 % Lymph % (Auto) 19.2 % [place] % (Auto) 9.5 % Eos % (Auto) 0.6 % Baso % (Auto) 0.3 % Neut # (Auto) 5.41 (1.40-6.50) K/uL Lymph # (Auto) 1.50 (1.20-3.40) K/uL [place] # (Auto) 0.74 H (0.11-0.59) K/uL Eos # (Auto) 0.05 (0.00-0.50) K/uL Baso # (Auto) 0.02 (0.00-0.20) K/uL Immature Gran # (Auto) 0.10 (0.01-0.20) K/uL Blood Type O Positive Antibody Screen NEGATIVE Vital Signs Temp Pulse Resp BP Pulse Ox O2 Del Method 07/29/23 22:10 20 95 07/29/23 21:10 20 95 07/29/23 20:10 20 100 07/29/23 19:40 20 100 07/29/23 19:40 36.9 C 61 20 104/65 100 Room Air 07/29/23 18:10 20 96 07/29/23 17:10 20 96 07/29/23 16:10 20 100 07/29/23 15:10 20 100 07/29/23 15:10 36.5 C 63 20 99/61 L 100 Room Air 07/29/23 14:21 18 100 07/29/23 13:35 16 100 07/29/23 12:44 16 100 PE: General: Alert, orientedx3, NAD CVS: S1S2 RRR Lungs: CTAB Abd: soft, NT, ND, BS+, Incision/ dressing C/D/I Lochia rubra minimal Ext: NT, no edema, SCD's on AP: 27 yo female s/p PLTCS, BTL , pod#1 VSS Afebrile doing well Continue to routine postop care Encourage PO intake, may ambulate and d/c cabral after 2 am Results & Data Vital Signs (Past 12 Hours) Vital Signs Temp Pulse Resp BP Pulse Ox O2 Del Method 07/29/23 22:10 20 95 07/29/23 21:10 20 95 07/29/23 20:10 20 100 07/29/23 19:40 20 100 07/29/23 19:40 36.9 C 61 20 104/65 100 Room Air 07/29/23 18:10 20 96 07/29/23 17:10 20 96 07/29/23 16:10 20 100 07/29/23 15:10 20 100 07/29/23 15:10 36.5 C 63 20 99/61 L 100 Room Air 07/29/23 14:21 18 100 07/29/23 13:35 16 100 07/29/23 12:44 16 100
[2023-07-30] MEDS: KETOROLAC 30 MG/ML VIAL IV PRN (01:42)
[2023-07-30] MEDS ORDERED: HYDROCORTISONE ACETATE 25 MG SUPP PR PRN (02:22)
[2023-07-30] MEDS ORDERED: PROMETHAZINE HCL 25 MG in SODIUM CHLORIDE 0.9% 50 ML IV PRN (02:22)
[2023-07-30] MEDS ORDERED: KETOROLAC 30 MG/ML VIAL IV PRN (02:22)
[2023-07-30] MEDS ORDERED: ONDANSETRON INJ 2 MG/ML 2 ML VIAL IV PRN (02:22)
[2023-07-30] MEDS ORDERED: MEPERIDINE HCL 50 MG/ML CARP IV PRN (02:22)
[2023-07-30] MEDS ORDERED: diphenhydrAMINE 50 MG/ML VIAL IV PRN (02:22)
[2023-07-30] MEDS ORDERED: diphenhydrAMINE Capsule 25 MG CAP PO PRN (02:22)
[2023-07-30] MEDS: IBUPROFEN 600 MG TAB PO PRN ×4 (06:35→19:20)
[2023-07-30] MEDS ORDERED: FERROUS SULFATE 325 MG TAB PO SCH (08:00)
[2023-07-30 08:53] LABS: Basophils # (auto) 0.03 K/uL (0.00-0.20); Basophils % (auto) 0.3 %; Eosinophils # (auto) 0.08 K/uL (0.00-0.50); Eosinophils % (auto) 0.7 %; Hematocrit (blood only) 28.3 % (37.0-47.0); Hemoglobin 8.9 g/dl (12.0-16.0); Immature Granulocytes # (auto) 0.08 K/uL (0.01-0.20); Immature Granulocytes % (auto) 0.7 %; Lymphocytes % (auto) 9.4 %; Mean Corpuscular Hemoglobin 25.9 pg (25.0-34.0); Mean Corpuscular Hgb Conc 31.4 g/dL (32.0-36.0); Mean Corpuscular Volume 82.3 fL (80.0-100.0); Monocytes % (auto) 6.8 %; Neutrophils % (auto) 82.1 %; Platelet Count 159 K/uL (130-400); RDW Coefficient of Variation 16.2 % (11.5-14.5); RDW Standard Deviation 48.5 fL (36.4-46.3); Red Blood Count 3.44 M/uL (4.20-5.40); White Blood Count 11.69 K/ul (4.8-10.8)
[2023-07-30] MEDS: DOCUSATE SODIUM 100 MG CAP PO SCH ×2 (08:58→20:05)
[2023-07-30] MEDS: SIMETHICONE 80 MG CHEW PO SCH ×4 (08:58→20:05)
[2023-07-30] MEDS: PRENATAL VITAMIN 1 TAB PO SCH (08:58)
[2023-07-30] MEDS: oxyCODONE/ACETAMINOPHEN 5mg/325mg TAB PO PRN ×4 (08:58→23:47)
[2023-07-30] MEDS ORDERED: bisacodyL 5 MG TABEC PO SCH (20:00)
[2023-07-30] MEDS: FERROUS SULFATE 325 MG TAB PO SCH (20:07)
[2023-07-31] MEDS: IBUPROFEN 600 MG TAB PO PRN ×2 (01:05→07:09)
[2023-07-31] MEDS: oxyCODONE/ACETAMINOPHEN 5mg/325mg TAB PO PRN ×2 (03:52→10:15)
--- NOTE | 2023-07-31 05:30 | Obstetrical Progress Note ---
Date of Service July 31, 2023 Assessment & Plan (1) delivery delivered: PPD #2 Pt doing well d/c home with instructions Subjective Ambulation: ambulating normally Voiding: no voiding problems Passing Gas:: Yes Diet Tolerance:: clear liquids Lochia:: Small Feeding Type:: breast feeding Review of Systems All systems reviewed & are unremarkable except as noted in HPI & below Physical Exam Constitutional WD/WN, vitals as above well developed and well nourished Eyes PERRL, conjunctivae normal, anicteric sclerae ENMT external ear and nose normal, oropharynx normal Neck trachea midline, no thyromegaly Respiratory normal respiratory effort, lungs clear to auscultation Cardiovascular RRR, no murmur, no edema Chest (Breasts) normal inspection/palpation of breasts Gastrointestinal (Abdomen) normal bowel sounds, soft, nontender, no hepatosplenomegaly Musculoskeletal no cyanosis or clubbing, extremities motor strength 5/5 Skin no rashes, warm and dry + incision (Clean,dry and intact) Neurologic patellar DTR's 2+ bilat, sensation intact Psychiatric A+Ox3, euthymic affect Genitourinary normal external appearance Lymphatic no cervical or axillary lymphadenopathy Results & Data Vital Signs (Past 12 Hours) Vital Signs Temp Pulse Resp BP Pulse Ox O2 Del Method 07/31/23 01:17 36.8 C 71 18 107/67 98 Room Air 07/30/23 19:24 36.8 C 73 18 105/70 98 Room Air
[2023-07-31 07:15] LABS: Hematocrit (blood only) 27.9 % (37.0-47.0); Hemoglobin 8.8 g/dl (12.0-16.0)
[2023-07-31] MEDS: FERROUS SULFATE 325 MG TAB PO SCH (08:27)
[2023-07-31] MEDS: PRENATAL VITAMIN 1 TAB PO SCH (08:27)
[2023-07-31] MEDS: DOCUSATE SODIUM 100 MG CAP PO SCH (08:27)
[2023-07-31] MEDS: SIMETHICONE 80 MG CHEW PO SCH (08:27)
[2023-07-31] MEDS ORDERED: bisacodyL 10 MG SUPP PR PRN (08:54)
== END 2023-07-31 10:30 | disposition home health service (06) | DRG 785 ==
LOC: 4S1 05:29 → 4E2 12:12 → MERGE 08-03 07:30 → EDSTATUS 08-03 07:30
PROC: M.PPTLD (2023-07-29 07:30)